=== PATIENT | female | born 1980 | race African-American/Black ===

== ENCOUNTER 2020-07-23 16:20 | Outpatient (REF) | payer BC, SELFPAY ==
[2020-07-23 17:19] LABS: Alanine Aminotransferase 16 U/L (0-31); Albumin Level 4.4 g/dL (3.5-5.0); Alkaline Phosphatase 81 U/L (39-117); Aspartate Amino Transferase 21 U/L (5-31); Bilirubin Direct 0.2 mg/dL (0.0-0.5); Bilirubin Total 0.6 mg/dL (0.0-1.0); Total Protein 7.2 g/dL (6.5-8.0); Triglycerides 150 mg/dL
[2020-07-23 17:39] LABS: HCG Quantitative < 2 mIU/mL
== END 2020-07-23 16:21 | disposition home or self-care (01) ==
LOC: HO.LAB 16:20
PROVIDERS: PCP Nurse Practitioner Family; Visit Provider Physician Assistant
DX: L70.0 Acne vulgaris (principal); Z79.899 Other long term (current) drug therapy
CPT/HCPCS: 80076; 84478; 84702

== ENCOUNTER 2020-09-03 16:44 | Outpatient (REF) | payer BC, SELFPAY ==
[2020-09-03 18:09] LABS: Alanine Aminotransferase 18 U/L (0-31); Albumin Level 4.5 g/dL (3.5-5.0); Alkaline Phosphatase 88 U/L (39-117); Aspartate Amino Transferase 19 U/L (5-31); Bilirubin Direct 0.2 mg/dL (0.0-0.5); Bilirubin Total 0.3 mg/dL (0.0-1.0); Total Protein 7.3 g/dL (6.5-8.0); Triglycerides 165 mg/dL
[2020-09-03 18:15] LABS: HCG Quantitative < 2 mIU/mL
== END 2020-09-03 16:45 | disposition home or self-care (01) ==
LOC: HO.LAB 16:44
PROVIDERS: PCP Nurse Practitioner Family; Visit Provider Dermatology
DX: L70.0 Acne vulgaris (principal); Z79.899 Other long term (current) drug therapy
CPT/HCPCS: 80076; 84478; 84702

== ENCOUNTER 2020-10-01 17:35 | Outpatient (REF) | payer BC, SELFPAY ==
[2020-10-01 18:56] LABS: Alanine Aminotransferase 20 U/L (0-31); Albumin Level 4.3 g/dL (3.5-5.0); Alkaline Phosphatase 82 U/L (39-117); Aspartate Amino Transferase 19 U/L (5-31); Bilirubin Direct 0.2 mg/dL (0.0-0.5); Bilirubin Total 0.3 mg/dL (0.0-1.0); Total Protein 7.1 g/dL (6.5-8.0); Triglycerides 94 mg/dL
[2020-10-01 19:02] LABS: HCG Quantitative < 2 mIU/mL
== END 2020-10-01 17:36 | disposition home or self-care (01) ==
LOC: HO.LAB 17:35
PROVIDERS: PCP Nurse Practitioner Family; Visit Provider Physician Assistant
DX: L70.0 Acne vulgaris (principal); Z79.899 Other long term (current) drug therapy
CPT/HCPCS: 36415; 80076; 84478; 84702

== ENCOUNTER 2020-11-19 14:54 | Outpatient (REF) | payer BC, SELFPAY ==
[2020-11-21 14:52] LABS: C. trachomatis RNA TMA NOT DETECTED (NOT DETECTED); N. gonorrhoeae RNA TMA NOT DETECTED (NOT DETECTED)
[2020-11-22 13:52] LABS: HPV 16 RNA NOT DETECTED (NOT DETECTED); HPV mRNA E6/E7 rflx Detected (Not Detected)
== END 2020-11-19 14:55 | disposition home or self-care (01) ==
LOC: HO.LAB 14:54
PROVIDERS: PCP Nurse Practitioner Family; Visit Provider Advanced Practice Midwife
DX: Z01.419 Encounter for gynecological examination (general) (routine) without abnormal findings (principal); R10.2 Pelvic and perineal pain; B37.3 Candidiasis of vulva and vagina; Z11.51 Encounter for screening for human papillomavirus (HPV); Z11.8 Encounter for screening for other infectious and parasitic diseases; Z11.3 Encounter for screening for infections with a predominantly sexual mode of transmission; Z88.2 Allergy status to sulfonamides; Z88.8 Allergy status to other drugs, medicaments and biological substances; Z91.030 Bee allergy status; Z91.040 Latex allergy status; Z12.31 Encounter for screening mammogram for malignant neoplasm of breast
CPT/HCPCS: 36415; 87491; 87591; 87624; 87625; 88141; 88142

== ENCOUNTER 2020-11-20 14:48 | Outpatient (REF) | payer BC, SELFPAY ==
--- NOTE | ~2020-11-20 | US_ITS ---
EXAMINATION: US PELVIS ULTRASOUND CLINICAL INFORMATION: R10.2 - Pelvic and perineal pain. Patient notes left lower quadrant pain. History endometriosis and spotting on IUD. Prior appendectomy. COMPARISON: None TECHNIQUE: Ultrasound of the pelvis is performed using both transabdominal and transvaginal transducers along with Doppler. Transvaginal imaging is performed due to inadequate visualization transabdominally. FINDINGS: Uterus: The uterus is anteverted and measures 10.1 x 4.8 x 6.1 cm. Volume 154 mL. There is an IUD present in expected position. The double wall endometrial thickness is approximately 7 mm. There is trace fluid in the endocervical canal. The uterus is smooth in contour and has normal myometrial echogenicity. There is a small right anterior intramural fibroid measuring 0.9 x 0.7 x 0.9 cm. Adnexa: Both ovaries are visualized. There is normal color flow to the adnexa. There is no ovarian torsion. There is no pelvic ascites or fluid collection. Right ovary measures 4.2 x 2.0 x 2.0 cm. Volume 9.0 mL. Left ovary measures 3.1 x 1.8 x 2.5 cm. Volume 7.3 mL. US/US pelvic complete IMPRESSION: 1. Uterus: IUD in normal position. Trace fluid in the cervical canal. Small intramural fibroid 0.9 cm. 2. Adnexa: No adnexal mass or pelvic ascites.
--- NOTE | ~2020-11-20 | US_ITS ---
EXAMINATION: US PELVIS ULTRASOUND CLINICAL INFORMATION: R10.2 - Pelvic and perineal pain. Patient notes left lower quadrant pain. History endometriosis and spotting on IUD. Prior appendectomy. COMPARISON: None TECHNIQUE: Ultrasound of the pelvis is performed using both transabdominal and transvaginal transducers along with Doppler. Transvaginal imaging is performed due to inadequate visualization transabdominally. FINDINGS: Uterus: The uterus is anteverted and measures 10.1 x 4.8 x 6.1 cm. Volume 154 mL. There is an IUD present in expected position. The double wall endometrial thickness is approximately 7 mm. There is trace fluid in the endocervical canal. The uterus is smooth in contour and has normal myometrial echogenicity. There is a small right anterior intramural fibroid measuring 0.9 x 0.7 x 0.9 cm. Adnexa: Both ovaries are visualized. There is normal color flow to the adnexa. There is no ovarian torsion. There is no pelvic ascites or fluid collection. Right ovary measures 4.2 x 2.0 x 2.0 cm. Volume 9.0 mL. Left ovary measures 3.1 x 1.8 x 2.5 cm. Volume 7.3 mL. US/US transvaginal IMPRESSION: 1. Uterus: IUD in normal position. Trace fluid in the cervical canal. Small intramural fibroid 0.9 cm. 2. Adnexa: No adnexal mass or pelvic ascites.
== END 2020-11-20 14:49 | disposition home or self-care (01) ==
LOC: HO.HMGCX 14:48
PROVIDERS: PCP Nurse Practitioner Family; Visit Provider Advanced Practice Midwife
DX: R10.2 Pelvic and perineal pain (principal)
CPT/HCPCS: 76830; 76856

== ENCOUNTER → 2020-11-22 09:50 | Outpatient (BNVA) | payer BC, SELFPAY | PROVIDERS: PCP Nurse Practitioner Family; Visit Provider Advanced Practice Midwife ==

== ENCOUNTER 2020-12-05 17:01 | Outpatient (REF) | payer BC, SELFPAY ==
[2020-12-05 17:51] LABS: UPreg QC Valid YES; Urine Pregnancy NEGATIVE (NEGATIVE)
== END 2020-12-05 17:02 | disposition home or self-care (01) ==
LOC: HO.LABR 17:01
PROVIDERS: PCP Nurse Practitioner Family; Visit Provider Physician Assistant
DX: L70.0 Acne vulgaris (principal); Z79.899 Other long term (current) drug therapy
CPT/HCPCS: 81025

== ENCOUNTER 2021-01-01 15:42 | Outpatient (REF) | payer BC, SELFPAY ==
[2021-01-02 11:38] LABS: BV Int Neg Control Negative (Negative); BV Int Pos Control Positive (Positive)
== END 2021-01-01 15:43 | disposition home or self-care (01) ==
LOC: HO.LAB 15:42
PROVIDERS: PCP Nurse Practitioner Family; Visit Provider Obstetrics & Gynecology
DX: N80.9 Endometriosis, unspecified (principal); R87.612 Low grade squamous intraepithelial lesion on cytologic smear of cervix (LGSIL); N76.0 Acute vaginitis; R10.2 Pelvic and perineal pain
CPT/HCPCS: 81003; 81025; 87480; 87510; 87660

== ENCOUNTER 2021-01-16 15:15 | Outpatient (REF) | payer BC, SELFPAY | END 2021-01-16 15:16 | disposition home or self-care (01) | LOC: HO.LAB 15:15 | PROVIDERS: PCP Nurse Practitioner Family; Visit Provider Obstetrics & Gynecology | DX: R87.612 Low grade squamous intraepithelial lesion on cytologic smear of cervix (LGSIL) (principal); N80.9 Endometriosis, unspecified; Z88.2 Allergy status to sulfonamides; Z88.8 Allergy status to other drugs, medicaments and biological substances; Z91.030 Bee allergy status; Z91.040 Latex allergy status; Z30.432 Encounter for removal of intrauterine contraceptive device | CPT/HCPCS: 57454; 58301; 88305 ==

== ENCOUNTER 2021-01-30 12:19 | Outpatient (REF) | payer BC, SELFPAY ==
[2021-01-30 19:37] LABS: Urine Pregnancy NEGATIVE (NEGATIVE)
[2021-01-30 19:38] LABS: UPreg QC Valid YES
[2021-01-30 19:59] LABS: HCG Quantitative < 2 mIU/mL
== END 2021-01-30 12:20 | disposition home or self-care (01) ==
LOC: HO.LAB 12:19
PROVIDERS: Absent Provider Physician Assistant; PCP Nurse Practitioner Family; Visit Provider Obstetrics & Gynecology
DX: L70.0 Acne vulgaris (principal); N80.9 Endometriosis, unspecified; Z79.899 Other long term (current) drug therapy
CPT/HCPCS: 36415; 81025; 84702

== ENCOUNTER 2021-03-08 08:31 | Outpatient (REF) | payer BC, SELFPAY ==
--- NOTE | ~2021-03-08 | MM_ITS ---
EXAMINATION: MM SCREENING DIGITAL BREAST TOMOSYNTHESIS, BILATERAL CLINICAL INFORMATION: Screening. Asymptomatic. Age 41. No prior breast imaging. No known family history breast cancer. The lifetime risk of breast cancer based on the Tyrer-Cuzick Model is 7%. COMPARISON: None (current study represents initial baseline exam). TECHNIQUE: Digital breast tomosynthesis is performed in both the craniocaudal and mediolateral oblique views along with computer-aided detection (CAD). Synthesized 2D images are generated from the tomosynthesis. FINDINGS: There are scattered areas of fibroglandular density (ACR BI-RADS breast composition Category b). There are no significant masses, abnormal calcifications, or other abnormalities. There are scattered benign bilateral punctate round calcifications, most are dermal. The axilla and skin contours are unremarkable. MM/MM tomosynthesis screening BI IMPRESSION: No mammographic evidence of malignancy. ASSESSMENT: BI-RADS 2: Benign RECOMMENDATION: Routine annual mammography screening. This patient's information was entered into a reminder system with a target due date for their next mammogram.
== END 2021-03-08 08:32 | disposition home or self-care (01) ==
LOC: HO.MAMMO 08:31
PROVIDERS: Visit Provider Advanced Practice Midwife
DX: Z12.31 Encounter for screening mammogram for malignant neoplasm of breast (principal)
CPT/HCPCS: 77063; 77067

== ENCOUNTER 2021-03-25 16:39 | Outpatient (REF) | payer BC, SELFPAY ==
[2021-03-25 18:26] LABS: UPreg QC Valid YES; Urine Pregnancy NEGATIVE (NEGATIVE)
== END 2021-03-25 16:40 | disposition home or self-care (01) ==
LOC: HO.LAB 16:39
PROVIDERS: PCP Nurse Practitioner Family; Visit Provider Physician Assistant
DX: Z79.899 Other long term (current) drug therapy (principal)
CPT/HCPCS: 81025

== ENCOUNTER 2021-05-01 14:58 | Outpatient (REF) | payer BC, SELFPAY ==
[2021-05-01 16:11] LABS: HCG Quantitative < 2 mIU/mL
== END 2021-05-01 14:59 | disposition home or self-care (01) ==
LOC: HO.LAB 14:58
PROVIDERS: PCP Nurse Practitioner Family; Visit Provider Physician Assistant
DX: Z79.899 Other long term (current) drug therapy (principal)
CPT/HCPCS: 36415; 84702

== ENCOUNTER → 2021-09-10 09:31 | Outpatient (BNVA) | payer BC, SELFPAY | PROVIDERS: PCP Nurse Practitioner Family; Visit Provider Obstetrics & Gynecology ==

== ENCOUNTER 2022-12-15 09:57 | Outpatient (REF) | payer BC, SELFPAY ==
--- NOTE | ~2022-12-15 | MM_ITS ---
EXAMINATION: MM SCREENING DIGITAL BREAST TOMOSYNTHESIS, BILATERAL CLINICAL INFORMATION: Screening. Asymptomatic. The lifetime risk of breast cancer based on the Tyrer-Cuzick Model is 7%. COMPARISON: Mammography: 03/08/2021 (baseline) TECHNIQUE: Digital breast tomosynthesis is performed in both the craniocaudal and mediolateral oblique views along with computer-aided detection (CAD). Synthesized 2D images are generated from the tomosynthesis. FINDINGS: There are scattered areas of fibroglandular density (ACR BI-RADS breast composition Category b). There are no significant masses, abnormal calcifications, or other abnormalities. Parenchymal pattern is similar to prior baseline exam. No architectural abnormality. There are scattered random calcifications again noted, most dermal. The axilla are unremarkable. MM/MM tomosynthesis screening BI IMPRESSION: No mammographic evidence of malignancy. ASSESSMENT: BI-RADS 2: Benign RECOMMENDATION: Routine annual mammography screening. This patient's information was entered into a reminder system with a target due date for their next mammogram.
== END 2022-12-15 09:58 | disposition home or self-care (01) ==
LOC: HO.MAMMO 09:57
PROVIDERS: PCP Nurse Practitioner Family; Visit Provider Nurse Practitioner Family
DX: Z12.31 Encounter for screening mammogram for malignant neoplasm of breast (principal)
CPT/HCPCS: 77063; 77067

== ENCOUNTER 2023-05-18 10:27 | Outpatient (AMB) | payer BC, SELFPAY ==
--- OUTSIDE RECORDS SUMMARY | 2023-05-18 10:29 | XMS_ITS | Continuity of Care Document ---
Author Name Unknown Organization [facility] Address [address] [place] [id number]- Care Team Providers Care Site Safety Manager Name Role Phone Gracy PÉREZ, Wyatt Feng Primary Care Physician Encounter [facility] [place] Date(s): 06/28/22 - 06/28/[address] [address]- Encounter Diagnosis Allergic reaction to bee sting(Final) - 06/28/22 Discharge Disposition: A-D/C Home Attending Physician: Fredrick Barrios DO Admitting Physician: Fredrick Barrios DO Referring Physician: Not on Staff, Referring MD Allergies, Adverse Reactions, Alerts Substance Reaction Severity Status Bee Stings Active Medications EpiPen 2-Yoshi 0.3 mg injectable kit = 0.3 mg, Intramuscular, Once, # 1 each, 0 Refills, Soft Stop, 06/28/22 22:06:00 EDT, [facility]/pharmacy #[id number], Partial fill upon patient request if the prescription is for a schedule II opioid drug. Start Date: 06/28/22 Status: Ordered Vital Signs Most recent to oldest [Reference Range]: 1 2 3 Oxygen Saturation [94-100 %] 98 % (06/28/22 10:00 PM) 98 % (06/28/22 9:51 PM) 99 % (06/28/22 9:00 PM) Pulse Rate [55-90 bpm] 87 bpm (06/28/22 10:00 PM) 98 bpm *H* (06/28/22 9:51 PM) 101 bpm *H* (06/28/22 9:00 PM) Blood Pressure [90-138/55-84 mm Hg] 148/97mm Hg *H* (06/28/22 10:00 PM) 143/93mm Hg *H* (06/28/22 9:00 PM) 133/82mm Hg (06/28/22 7:58 PM) Respiratory Rate [16-30 br/min] 25 br/min (06/28/22 10:00 PM) 25 br/min (06/28/22 9:51 PM) 25 br/min (06/28/22 9:00 PM) Temperature [96.8-100.4 DegF] 98.2 DegF (06/28/22 7:58 PM) Mode of Delivery (Oxygen) Room air (06/28/22 9:51 PM) Room air (06/28/22 7:58 PM) Temperature Route Oral (06/28/22 7:58 PM) Patient Care team information Personnel Name: Wyatt Dubose NP Address: Address: [address] [place] [id number]
--- NOTE | 2023-05-18 10:31 | MHC.OFFVIS ---
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: No Information Interpreted: non-clinical & clinical Ladle Car Operator: Ladle Car Operator Present (Mary Beth) Allergies latex Allergy (Unknown, Verified 05/18/23 10:35) unknown Sulfa (Sulfonamide Antibiotics) Allergy (Unknown, Verified 05/18/23 10:35) unknown sulfamethoxazole [From Bactrim] Allergy (Unknown, Verified 05/18/23 10:35) unknown trimethoprim [From Bactrim] Allergy (Unknown, Verified 05/18/23 10:35) unknown bee stings Allergy (Unknown, Uncoded 05/18/23 10:35) unknown Is last menstrual period known: No Post menopausal: No HPI HPI Comments History of Present Illness Details Presenting for annual exam. No complaints. Last Pap/HPV was WANDA 1/HPV positive, colpo/biopsy/ECC were negative Last Mammogram was BI-RADS 2 in 12/18 No previous screening colonoscopy [facility] Medical History (Updated 05/18/23 @ 10:58 by Bereket Heaton MD) Acne cosmetica Endometriosis LGSIL (low grade squamous intraepithelial dysplasia) On Accutane therapy Surgical History History of appendectomy History of tubal ligation S/P laparoscopic surgery Family History Father Diabetes mellitus Mother No problems noted. Sister No problems noted. Maternal Grandmother Diabetes mellitus Lung cancer Maternal Grandfather Myocardial infarction Paternal Grandmother Diabetes mellitus Stroke Paternal Grandfather Myocardial infarction Son No problems noted. Daughter No problems noted. Social History Alcohol intake: current Alcohol intake frequency: a few times a month Female Reproductive History Menstrual Age of Menarche: 11 control method: permanent sterilization Total pregnancies: 2 Full term: 2 Number of Living Children: 2 Date of last pap smear: 11/20/20 (+HPV) History of abnormal pap smear: Yes Date of Mammogram: 12/15/22 Review of Systems Const All systems reviewed & are unremarkable except as noted in HPI and below Card Reports as per HPI Resp Reports as per HPI GI Reports as per HPI and Reports no additional complaints Reports as per HPI Physical Exam Vital Signs: Last Vital Signs BP 130/86 05/18/23 10:32 BMI result Body Mass Index 36.1 Const General: cooperative, healthy appearing and comfortable Chest Chest palpation & inspection: normal inspection of the chest and normal palpation of entire chest wall Breast/axilla inspection: normal inspection of the breasts and normal inspection of the axillae Breast/axilla palpation: normal palpation of the breasts, normal palpation of the axillae and no axillary lymphadenopathy Resp Effort & Inspection: normal respiratory effort Auscultation: clear to auscultation bilaterally Percussion: percussion normal Cardio Palpation: normal PMI Rate: regular rate Rhythm: regular rhythm Heart sounds: no murmurs and no rubs Peripheral pulses: Peripheral pulses 2+ throughout GI Inspection: Yes normal to inspection Palpation (GI): Soft to palpation, nontender, no guarding, not rigid and No hepatosplenomegaly present Percussion: Yes normal to percussion Auscultation: normal bowel sounds Rectal Exam - Female: deferred General: Yes bladder normal to palpation External Female Exam: No lesion Speculum Exam - Vagina: normal appearance of the vagina, normal palpation, normal vaginal discharge and not erythematous Speculum Exam - Cervix: normal appearance of the cervix and normal palpation Bimanual exam- vagina & uterus: normal bimanual exam, normal palpation, uterine size normal, bladder normal to palpation, consistency normal and normal palpation Bimanual Exam- Adnexa, other: normal adnexae, no masses and no tenderness Assessment & Plan Assessment & Plan (1) Well woman exam: Code(s): Z01.419 - Encounter for gynecological examination (general) (routine) without abnormal findings Plan: Cotesting done. Instructions given the patient to schedule her next screening Mammogram in 12/19. Counseled the patient about the recommended dietary allowance of 1000 mg of Calcium & 600 IU of vitamin D. The patient was instructed to perform monthly self-breast exams and to schedule an annual exam in a year; will refer the patient GI for screening colonoscopy. All questions answered and the patient verbalized understanding. Instructed the patient to schedule annual exam in a year Orders: Referrals Gastroenterology Referral Z12.11 - Encounter for screening for malignant neoplasm of colon Coding Level of Care Code Est Pt Prev Care 40-64y([address]393) Diagnoses Well woman exam Z01.419
[2023-05-18 10:32] VITALS: BP 130/86; BMI 36.1
== END 2023-05-18 11:07 | disposition home or self-care (01) ==
LOC: HO.HWS 10:27
PROVIDERS: PCP Nurse Practitioner Family; Visit Provider Obstetrics & Gynecology
DX: Z01.419 Encounter for gynecological examination (general) (routine) without abnormal findings (principal)
CPT/HCPCS: 99396

== ENCOUNTER 2023-05-18 10:27 | Outpatient (REF) | payer BC, SELFPAY ==
[2023-05-21 20:49] LABS: HPV mRNA E6/E7 rflx Not Detected (Not Detected)
== END 2023-05-18 10:28 | disposition home or self-care (01) ==
LOC: HO.LNP 10:27
PROVIDERS: PCP Nurse Practitioner Family; Visit Provider Obstetrics & Gynecology
DX: Z01.419 Encounter for gynecological examination (general) (routine) without abnormal findings (principal)
CPT/HCPCS: 87624; 88142

== ENCOUNTER 2023-11-24 10:04 | Outpatient (REF) | payer BC, SELFPAY ==
[2023-11-24 10:39] LABS: Appearance Urine Clear; Color Urine Yellow; Glucose Urine UA Negative (Negative); Leukocyte Esterase Urine Trace (Negative); Nitrite Urine Negative (Negative); PH 5.5 (5.0-9.0); Specific Gravity - Urine 1.015 (1.005-1.025); UMIC TRIGGER UACC YES; Urine Blood Trace (Negative); Urine Ketones Negative (Negative); Urine Protein Negative (Neg-Trace)
[2023-11-24 10:47] LABS: Bacteria Urine 1+ (None Seen); Hyaline Casts Urine 0-2 /LPF (0-2); UACC Culture Trigger YES
== END 2023-11-24 10:05 | disposition home or self-care (01) ==
LOC: HO.LAB 10:04
PROVIDERS: PCP Nurse Practitioner Family; Visit Provider Obstetrics & Gynecology
DX: R30.0 Dysuria (principal)
CPT/HCPCS: 81001; 87086; 87088; 87186

== ENCOUNTER 2024-03-25 21:38 | Emergency (ER) | payer BC, SELFPAY ==
[2024-03-25 21:40] VITALS: BP 125/84; PULSE 90; RESP 18; TEMP 36.9; O2SAT 97; BMI 36.7
--- NOTE | 2024-03-25 22:02 | ED.ALLEREA ---
HPI - Allergic Reaction General Chief complaint: Allergic Reaction Stated complaint: Allergic reaction Time Seen by Provider: 03/25/24 21:58 Source: patient Mode of arrival: ambulatory Limitations: no limitations History of Present Illness ED Provider: Dr. Shantell Montes HPI narrative: patient comes to the emergency room complaining of an allergic reaction to a bee sting. 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 Patient states that she is known to be allergic and therefore immediately injected herself with an EpiPen. Patient states that she was doing well initially. However, within couple of hours patient started having hives head to toe, very itchy. Patient denies chest pain or shortness of breath, no difficulty breathing. Complaining of tachycardia that started after injecting the EpiPen Related Data Home Medications ?Medication ?Instructions ?Recorded ?Confirmed phentermine 37.5 mg capsule 37.5 mg PO 05/18/23 Previous Rx's ?Medication ?Instructions ?Recorded levonorgestrel 0.15 mg-ethinyl 1 tab PO DAILY #91 tabs 06/04/23 estradiol 30 mcg tablets,3 mos pack(91) nitrofurantoin 100 mg PO BID 5 days #10 caps 11/25/23 monohydrate/macrocrystals 100 mg capsule (Macrobid) epinephrine 0.3 mg/0.3 mL 0.3 mg (0.3 mL) IM Q4H PRN 03/25/24 injection, auto-injector (EpiPen) anaphylaxis #2 ea Allergies Allergy/AdvReac Type Severity Reaction Status Date / Time latex Allergy Unknown unknown Verified 03/25/24 21:42 Sulfa (Sulfonamide Allergy Unknown unknown Verified 03/25/24 21:42 Antibiotics) sulfamethoxazole Allergy Unknown unknown Verified 03/25/24 21:42 [From Bactrim] trimethoprim [From Bactrim] Allergy Unknown unknown Verified 03/25/24 21:42 bee stings Allergy Unknown unknown Uncoded 05/18/23 10:35 Review of Systems Review of Systems: Constitutional : No Weight loss, No Fever, No Chills, No Night Sweats, No Fatigue, No Malaise ENT/Mouth : No Hearing loss, No Ear Pain, No Nasal Congestion, No Sinus Pain, No Hoarseness, No sore throat, No Rhinorrhea, No Swallowing Difficulty Eyes: No Eye Pain, No Swelling, No Redness, No Foreign Body, No Discharge, No Vision Changes Cardiovascular : No Chest Pain, No SOB, No Dyspnea on Exertion, No Orthopnea, No Edema, complaining of Palpitations Respiratory : No Cough, No Sputum, No Wheezing, No Smoke Exposure, No Dyspnea Gastrointestinal : No Nausea, No Vomiting, No Diarrhea, No Constipation, No abdominal Pain, No Hematochezia, No Melena Genitourinary : no irregular bleeding, No Dysuria, No Urinary Frequency, No Hematuria, No Urinary Incontinence, No Urgency, No Flank Pain, No Urinary Flow Changes, No Hesitancy Musculoskeletal : No joint pain, No Myalgias, No Joint Swelling Skin : complaining of hives head to toe Neuro : No Weakness, No Numbness, No Paresthesias, No Loss of Consciousness, No Dizziness, No Headache Psych : No Anxiety/Panic, No Depression, No SI/HI/AH/VH, No Social Issues, Heme/Lymph: No Bruising, No Bleeding,No Lymphadenopathy Endocrine : No Polyuria, No Polydipsia, No Temperature Intolerance PMFSH Past Medical History Medical History LGSIL (low grade squamous intraepithelial dysplasia) On Accutane therapy Acne cosmetica Endometriosis Surgical History S/P laparoscopic surgery History of appendectomy History of tubal ligation Family History Family History Father Diabetes mellitus Mother No problems noted. Sister No problems noted. Maternal Grandmother Diabetes mellitus Lung cancer Maternal Grandfather Myocardial infarction Paternal Grandmother Diabetes mellitus Stroke Paternal Grandfather Myocardial infarction Son No problems noted. Daughter No problems noted. Social History Social History Alcohol intake: current Alcohol intake frequency: holidays/special occasions only Smoked in Last 30 Days: No Use of substances other than those prescribed or required for medical reasons: No Advance Directives: No Advance Directives Information Provided: No Do you have a plan to hurt others: No Plan Patient : No Physical Exam ED Vital Signs: Vital Signs - 24 hr 03/25/24 21:40 Temperature 98.5 F Pulse Rate 90 Respiratory Rate 18 Blood Pressure 125/84 Pulse Oximetry 97 Oxygen Delivery Method Room Air BMI result Body Mass Index 36.7 Const Other: Appearance: Alert. Oriented X3. No acute distress. Eyes: Pupils equal, round and reactive to light. ENT: Pharynx normal. Neck: Normal inspection. Neck supple. No lymph nodes noted. No crepitus CVS: Normal heart rate and rhythm. Pulses normal. Normal S1 and S2 Respiratory: No respiratory distress. Breath sounds normal. No Wheezing. No rales Abdomen: Soft and nontender. No rigidity. No distention. Skin: hives around the neck, chest, arms legs abdomen and back Extremities: No lower extremity edema. No Lacerations. No Rash Neuro: Oriented X 3. No motor deficit. No sensory deficit. Moving all extremities. No slurred speech. CN 2 through 12 grossly intact Psych: calm, cooperative, normal affect Course Course Course Narrative: - at this time, patient has hives. No signs of angioedema. - Discussed with the patient that the tachycardia is secondary to a side effect of the EpiPen. - Vitals stable. - Patient receiving IV fluids, diphenhydramine, famotidine and Solu-Medrol IV Medications Administered Discontinued Medications Generic Name Dose Route Start Last Admin Trade Name Freq PRN Reason Stop Dose Admin Diphenhydramine HCl 50 mg 03/25/24 22:01 03/25/24 22:11 Diphenhydramine Hcl 50 Mg/Ml Vial IVPUSH 03/25/24 22:02 50 mg ONCE ONE Administration Famotidine 20 mg 03/25/24 22:01 03/25/24 22:11 Famotidine/Pf 20 Mg/2 Ml Vial IVPUSH 03/25/24 22:02 20 mg ONCE ONE Administration Sodium Chloride 1,000 mls @ 999 mls/hr 03/25/24 22:01 03/25/24 22:11 Ns IVCONT 03/25/24 23:01 999 mls/hr .Q1H1M ONE Administration Methylprednisolone Sodium Succinate 125 mg 03/25/24 22:01 03/25/24 22:11 Methylprednisolone Sod Succ 125 Mg/2 Ml Vial IVPUSH 03/25/24 22:02 125 mg ONCE ONE Administration Ondansetron HCl 4 mg 03/25/24 22:06 03/25/24 22:11 Ondansetron Hcl 4 Mg/2 Ml Vial IVPUSH 03/25/24 22:07 4 mg ONCE ONE Administration Medical Decision Making Medical Decision Making [facility] Narrative: after the IV treatment, patient feeling much better, hives completely resolved - vitals remained stable - on physical exam prior to discharge patient's oxygen saturation 97% on room air, no wheezing, no oropharyngeal edema Differential Diagnosis Differential Diagnoses: The differential diagnosis associated with the presentation includes ( allergic reaction, anaphylaxis) Critical Care Time Critical Care Time Critical Care Time: Yes Total Critical Care Time: 60 Attestation: I have personally provided critical care time. Time includes review of lab data, radiology results, discussion with consultants, and monitoring for potential decompensation. Intervention performed as documented. Discharge Plan Discharge Clinical Impression: Bee sting allergy Patient Disposition: Home, Self-Care Instructions: Allergies (ED) Additional Instructions: Please follow-up with your primary care physician tomorrow. If you have any worsening or new symptoms, please return to the emergency room or call 911 Prescriptions: New epinephrine [EpiPen] 0.3 mg/0.3 mL auto-injector 0.3 mg IM Q4H PRN (Reason: anaphylaxis) Qty: 2 0RF No Action levonorgestrel-ethinyl estrad 0.15 mg-30 mcg (91) tablets,dose pack,3 month 1 tab PO DAILY Qty: 91 3RF nitrofurantoin monohyd/m-cryst [Macrobid] 100 mg capsule 100 mg PO BID 5 Days Qty: 10 0RF phentermine 37.5 mg capsule 37.5 mg PO Print Language: Burkinan
[2024-03-25] MEDS: diphenhydrAMINE HCL 50 MG/ML VIAL IVPUSH (22:11)
[2024-03-25] MEDS: Famotidine/PF 20 MG/2 ML VIAL IVPUSH (22:11)
[2024-03-25] MEDS: methylPREDNISolone Sod Succ 125 MG/2 ML VIAL IVPUSH (22:11)
[2024-03-25] MEDS: ondansetron HCL 4 MG/2 ML VIAL IVPUSH (22:11)
[2024-03-25] MEDS: 0.9 % Sodium Chloride 1,000 ML 999 ML IVCONT (22:11)
[2024-03-25 23:36] VITALS: BP 125/84; PULSE 90; RESP 18; TEMP 36.9; O2SAT 97
== END 2024-03-25 23:37 | disposition home or self-care (01) ==
PROVIDERS: Emergency Provider Emergency Medicine; PCP Nurse Practitioner Family
DX: T63.441A Toxic effect of venom of bees, accidental (unintentional), initial encounter (principal); L50.9 Urticaria, unspecified; Y92.007 Garden or yard of unspecified non-institutional (private) residence as the place of occurrence of the external cause; Z79.899 Other long term (current) drug therapy
CPT/HCPCS: 96361; 96374; 96375; 99284; J1200; J2405; J2919

== ENCOUNTER → 2024-05-26 13:15 | Outpatient (RCR) | payer BC, SELFPAY ==
[2021-01-08 14:57] VITALS: BP 128/75; PULSE 91; TEMP 36.4; O2SAT 95; BMI 38.5
--- NOTE | 2021-01-08 15:49 | PM.HEMONCCN ---
Subjective - Subjective Chief complaint: Consult for: Family history of blood clots. Patient: new to practice Consult date: 01/08/21 Requesting Physician: Sudarshan. Primary Care Provider: Wyatt Dubose [facility] Medical Summary: DIAGNOSIS: Mother with history of DVT at age of 18. She was on control. Grandma with blood clot in her 20 to 30ies. HPI - Consult Narrative Reason for consult: Consult for family history of DVT. Narrative: Brisa Messina is a pleasant 40 year old lady, who is in excellent health. She tells me that she has history of endometriosis. She had an IUD in place for the last 3 years. Lately she has had more premenstrual pain. Her period is not heavy however the pelvic pain tends to be rather excruciating. She had it lasting 2 weeks in October. Then again in November. Now she started her period beginning of December. She is spotting however the pain is rather intense. She has to go to have the IUD removed and undergo scraping. Then to consider control pills, for the endometriosis. She has been referred since she has a family history of DVTs. Her mom was 18 when she was started on control. She had a DVT. She was admitted and was on heparin then bridged over to warfarin. She thinks she had 3 episodes. They resolve once she was off the oral contraceptive. Her maternal grandma had developed a DVT in her 30s in her leg. There is no other relative with that history. 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 She is . She has 2 children 22 and 20-year-old. Her 20-year-old daughter is in the [employer] in [place]. Recently she started indulging in healthy habits. This was actually triggered by a COVID infection in last October. She got really ill with it. After she got better, she started it taking in healthy nutritious diet. She does not eat meat. She has started exercising regularly. She has been able to lose 30 lb in 1 year. She is working 3 jobs in addition. ROS: She has excellent energy level. No fever nor chills. She enjoys a good appetite. She lost weight. She denies any chest pain or trouble breathing. No lower extremity pain or edema. Denies abdominal pain nausea vomiting heartburn indigestion. Her bowels are working without any gross blood in the stools. No urinary symptoms. Denies joint pains nor muscle aches. Denies focal weakness. Denies depression. Review of Systems - Constitutional Reports system reviewed and no additional complaints, except as documented - Eyes Reports system reviewed and no additional complaints, except as documented - ENT Reports system reviewed and no additional complaints, except as documented - Cardiovascular Reports system reviewed and no additional complaints, except as documented - Respiratory Reports no additional respiratory complaints - Gastrointestinal Reports system reviewed and no additional complaints, except as documented - Genitourinary Reports no additional female genitourinary complaints - Musculoskeletal Reports system reviewed and no additional complaints, except as documented - Integumentary/Breasts Skin/Breast: Reports no additional skin complaints - Neurologic Reports system reviewed and no additional complaints, except as documented - Psychiatric Reports system reviewed and no additional complaints, except as documented - Endocrine Reports no additional endocrine complaints - Hematologic/Lymphatic Reports system reviewed and no additional complaints, except as documented - Allergic/Immunologic Reports system reviewed and no additional complaints, except as documented PMF Medical History: Medical History (Last Reviewed 01/08/21 @ 15:00 by Gabi Pastrana) Acne cosmetica Endometriosis On Accutane therapy Functional capacity: independent ambulation Patient : No Family History: Family History (Last Reviewed 01/08/21 @ 15:00 by Gabi Pastrana) Father Diabetes mellitus Mother No problems noted. Sister No problems noted. Maternal Grandmother Diabetes mellitus Lung cancer Maternal Grandfather Myocardial infarction Paternal Grandmother Diabetes mellitus Stroke Paternal Grandfather Myocardial infarction Son No problems noted. Daughter No problems noted. Surgical History: Surgical History (Last Reviewed 01/08/21 @ 15:00 by Gabi Pastrana) History of appendectomy History of tubal ligation S/P laparoscopic surgery Social History: Social History (Last Updated 01/08/21 @ 15:01 by Gabi Pastrana) Alcohol History: Alcohol intake: current Alcohol History Details: Alcohol intake frequency: a few times a month Tobacco History: Smoking Status: Never smoker Substance Use History: Use of substances other than those prescribed or required for medical reasons: No Nutrition Assessment: Patient : No Smoking status: Never smoker Home Medications and Allergies Home Medications Medication Instructions Recorded Confirmed Type isotretinoin [Claravis] cap PO 01/08/21 01/08/21 History Allergies Allergy/AdvReac Type Severity Reaction Status Date / Time latex Allergy Unknown unknown Verified 01/01/21 15:54 Sulfa (Sulfonamide Allergy Unknown unknown Verified 01/01/21 15:54 Antibiotics) sulfamethoxazole Allergy Unknown unknown Verified 01/01/21 15:54 [From Bactrim] trimethoprim [From Bactrim] Allergy Unknown unknown Verified 01/01/21 15:54 bee stings Allergy Unknown unknown Uncoded 08/29/20 12:05 Physical Exam Vital signs: Vital Signs Temp 97.6 F 01/08/21 14:57 Pulse 91 01/08/21 14:57 BP 128/75 01/08/21 14:57 Pulse Ox 95 01/08/21 14:57 Intake & Output 01/07/21 01/08/21 01/08/21 18:59 06:59 18:59 Other: Weight 89.4 kg [place] Weight in Grams 58991 Weight 89.4 kg - Constitutional Present: no acute distress - Routine HEENT Exam Head: Present: normal inspection ENT: Present: mucous membranes moist - Routine Neck Exam Present: supple - Routine Respiratory Exam Present: CTAB - Routine Cardiovascular Exam Cardiovascular: Present: RRR, S1, S2 - Routine Abdominal Exam Present: soft, nontender - Routine Skin Exam Present: intact - Routine Neurological Exam Present: alert, vision grossly intact - Detailed Neurological Exam: Coma Scale Eye Opening: Spontaneous (4) Verbal Response: Oriented (5) Motor Response: Obeys commands (6) Celestina Coma Scale Total: 15 - Routine Psychiatric Exam Present: normal affect Hem/Onc Consult Result - Labs CBC & Chem 7: 01/08/21 15:47 01/08/21 15:47 Assessment and Plan (1) Family history of thrombosis Status: Acute This is a very pleasant 40-year-old lady without any significant past medical history. Her mom had developed DVT at the age of 18 after she took oral contraceptives. Her grandma had a DVT middle-age. She has had endometriosis. V Belt Skiver if she can get oral contraceptives. The patient herself has not had any problems. She has been on oral contraceptives in the past and has tolerated them well. The DVT in her mom was provoked, and she never had a recurrence after discontinuation of the control. PLAN: As such I feel that she does not really need to undergo extensive hypercoagulable workup. She can wait till after her procedures to decide if she would like to have another IUD placed or if she can be on Provera or low-dose estrogen containing oral contraceptive. Will check baseline labs to make sure she does not have anemia in the setting of her irregular periods. I wish her the best of luck. Thank you, CC: Dr. Heaton.
[2021-01-08 16:13] LABS: MANUAL DIFF FLAG NO
--- NOTE | 2021-01-08 16:21 | MHC.HEMONCMA ---
Pt presents for consult for thrombosis. History reviewed and labs drawn.
[2021-01-08 16:24] LABS: Basophils Absolute Auto 0.1 X10*3/uL (0.0-0.2); Basophils Percent Auto 0.7 % (0-2); Eosinophils Percent Auto 0.5 % (0-4); Hematocrit 38.8 % (37-47); Hemoglobin 12.9 g/dl (12.0-16.0); Imm Gran Abs Auto 0.03 X10*3/uL (0.00-0.03); Imm Gran Pct Auto 0.4 % (0.0-0.4); Lymphocytes Absolute Auto 2.8 X10*3/uL (1.2-4.9); Lymphocytes Percent Auto 34.9 % (20-40); Mean Corpuscular HGB Conc 33.2 g/dl (31.0-35.0); Mean Corpuscular Hemoglobin 30.2 pg (27.0-33.0); Mean Corpuscular Volume 90.9 fL (80-98); Mean Platelet Volume 9.3 fL (9.4-12.3); Monocytes Absolute Auto 0.5 X10*3/uL (0.1-1.2); Monocytes Percent Auto 5.7 % (2-11); Neutrophils Absolute Auto 4.7 X10*3/uL (2.0-8.3); Neutrophils Percent Auto 57.8 % (45-73); Platelet Count 335 X10*3/uL (160-400); Red Blood Count 4.27 X10*6/uL (4.20-5.50); Red Cell Distribution Width 13.5 % (11.0-16.0); White Blood Count 8.1 X10*3/uL (4.8-10.8)
[2021-01-08 16:40] LABS: Alanine Aminotransferase 17 U/L (0-31); Albumin Level 4.4 g/dL (3.5-5.0); Alkaline Phosphatase 84 U/L (39-117); Anion Gap 14 (12-20); Aspartate Amino Transferase 22 U/L (5-31); Bilirubin Total 0.4 mg/dL (0.0-1.0); Blood Urea Nitrogen 11 mg/dL (9-16); Calcium 9.4 mg/dL (8.4-10.2); Carbon Dioxide 25 mmol/L (22-29); Chloride 103 mmol/L (96-108); Creatinine Clr Calc Pharmacy 98.5; Estimated Glomerular Filt Rate > 60; Glucose Random 83 mg/dL (60-115); Potassium 3.9 mmol/L (3.3-5.1); Sodium 138 mmol/L (135-145); Total Protein 7.6 g/dL (6.5-8.0)
[2021-01-08 17:00] LABS: Ferritin 56 ng/mL (10-250)
== END | disposition home or self-care (01) ==
LOC: HO.ONC 01-08 14:53
PROVIDERS: PCP Nurse Practitioner Family; Visit Provider Internal Medicine Medical Oncology
DX: N80.9 Endometriosis, unspecified (principal); Z82.49 Family history of ischemic heart disease and other diseases of the circulatory system
CPT/HCPCS: 36415; 80053; 82728; 85025

== ENCOUNTER 2024-09-08 08:33 | Outpatient (AMB) | payer BC, SELFPAY ==
[2024-09-08 08:44] VITALS: BP 118/70; BMI 40.4
--- NOTE | 2024-09-08 08:44 | A.OFFVIS_ITS ---
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 No complaints. Last Pap/HPV was negative in 05/20, this was preceded by Pap smear in 11/18 showing WANDA 1/HPV positive, colpo/biopsy/ECC were negative Last Mammogram was BI-RADS 2 in 12/18 No previous screening colonoscopy [facility] Medical History LGSIL (low grade squamous intraepithelial dysplasia) On Accutane therapy Acne cosmetica Endometriosis Surgical History S/P laparoscopic surgery History of appendectomy History of tubal ligation Family History Father Diabetes mellitus Mother No problems noted. Sister No problems noted. Maternal Grandmother Diabetes mellitus Lung cancer Maternal Grandfather Myocardial infarction Paternal Grandmother Diabetes mellitus Stroke Paternal Grandfather Myocardial infarction Son No problems noted. Daughter No problems noted. Social History Alcohol intake: current Alcohol intake frequency: holidays/special occasions only Female Reproductive History Menstrual Age of Menarche: 11 Review of Systems Const All systems reviewed & are unremarkable except as noted in HPI and below Card Reports as per HPI Resp Reports as per HPI GI Reports as per HPI and Reports no additional complaints Reports as per HPI Physical Exam Vital Signs: Last Vital Signs BP 118/70 09/08/24 08:44 BMI result Body Mass Index 40.4 Const General: cooperative, healthy appearing and comfortable Chest Chest palpation & inspection: normal inspection of the chest and normal palpation of entire chest wall Breast/axilla inspection: normal inspection of the breasts and normal inspection of the axillae Breast/axilla palpation: normal palpation of the breasts, normal palpation of the axillae and no axillary lymphadenopathy Resp Effort & Inspection: normal respiratory effort Auscultation: clear to auscultation bilaterally Percussion: percussion normal Cardio Palpation: normal PMI Rate: regular rate Rhythm: regular rhythm Heart sounds: no murmurs and no rubs Peripheral pulses: Peripheral pulses 2+ throughout GI Inspection: Yes normal to inspection Palpation (GI): Soft to palpation, nontender, no guarding, not rigid and No hepatosplenomegaly present Percussion: Yes normal to percussion Auscultation: normal bowel sounds Rectal Exam - Female: deferred General: Yes bladder normal to palpation External Female Exam: No lesion Speculum Exam - Vagina: normal appearance of the vagina, normal palpation, normal vaginal discharge and not erythematous Speculum Exam - Cervix: normal appearance of the cervix and normal palpation Bimanual exam- vagina & uterus: normal bimanual exam, normal palpation, uterine size normal, bladder normal to palpation, consistency normal and normal palpation Bimanual Exam- Adnexa, other: normal adnexae, no masses and no tenderness Assessment & Plan Assessment & Plan (1) Well woman exam: Code(s): Z01.419 - Encounter for gynecological examination (general) (routine) without abnormal findings Category: Medical Plan: Cotesting done. Mammogram ordered. GI referral placed for screening colonoscopy Counseled the patient about the recommended dietary allowance of 1000 mg of Calcium & 600 IU of vitamin D. The patient was instructed to perform monthly self-breast exams and to schedule an annual exam in a year; All questions answered and the patient verbalized understanding. Instructed the patient to schedule annual exam in a year Orders: Orders MM tomosynthesis screening BI Today Z12.31 - Encounter for screening mammogram for malignant neoplasm of breast Referrals Gastroenterology Referral Z12.11 - Encounter for screening for malignant neopl asm of colon Coding Level of Care Code Est Pt Prev Care 40-64y(76631) Diagnoses Well woman exam Z01.419
== END 2024-09-08 09:24 | disposition home or self-care (01) ==
PROVIDERS: PCP Nurse Practitioner Family; Visit Provider Obstetrics & Gynecology
DX: Z01.419 Encounter for gynecological examination (general) (routine) without abnormal findings (principal)
CPT/HCPCS: 99396

== ENCOUNTER 2024-09-08 08:33 | Outpatient (REF) | payer BC, SELFPAY ==
[2024-09-09 09:24] LABS: HPV 16,18/45 See PAP report
== END 2024-09-08 08:34 | disposition home or self-care (01) ==
LOC: HO.LNP 08:33
PROVIDERS: PCP Nurse Practitioner Family; Visit Provider Obstetrics & Gynecology
DX: Z01.419 Encounter for gynecological examination (general) (routine) without abnormal findings (principal); Z87.42 Personal history of other diseases of the female genital tract
CPT/HCPCS: 87624; 88175

== ENCOUNTER 2025-07-03 08:26 | Outpatient (REF) | payer BC, SELFPAY | END 2025-07-03 08:27 | disposition home or self-care (01) | LOC: HO.LNP 08:26 | PROVIDERS: Visit Provider Obstetrics & Gynecology | DX: Z01.419 Encounter for gynecological examination (general) (routine) without abnormal findings (principal); Z11.51 Encounter for screening for human papillomavirus (HPV); Z12.11 Encounter for screening for malignant neoplasm of colon; Z23 Encounter for immunization | CPT/HCPCS: 87626; 88175; 90471; 90651 ==

== ENCOUNTER 2025-07-03 08:26 | Outpatient (AMB) | payer BC, SELFPAY ==
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
--- NOTE | 2025-07-03 08:38 | A.OFFVIS_ITS ---
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 No complaints. Last Pap/HPV was negative in 09/20, this was preceded by negative Co testing in 04/2023 and in LSIL/HPV positive in 2020 followed by colpo cervical biopsy whi ch was negative Last Mammogram was BI-RADS 2 in 04/19 No previous screening colonoscopy [facility] Medical History LGSIL (low grade squamous intraepithelial dysplasia) On Accutane therapy Acne cosmetica Endometriosis Surgical History S/P laparoscopic surgery History of appendectomy History of tubal ligation Family History Father Diabetes mellitus Mother No problems noted. Sister No problems noted. Maternal Grandmother Diabetes mellitus Lung cancer Maternal Grandfather Myocardial infarction Paternal Grandmother Diabetes mellitus Stroke Paternal Grandfather Myocardial infarction Son No problems noted. Daughter No problems noted. Social History Alcohol intake: current Alcohol intake frequency: holidays/special occasions only Female Reproductive History Menstrual Age of Menarche: 11 Review of Systems Const All systems reviewed & are unremarkable except as noted in HPI and below Card Reports as per HPI Resp Reports as per HPI GI Reports as per HPI and Reports no additional complaints Reports as per HPI Physical Exam Vital Signs: BMI result Body Mass Index 41.6 Const General: cooperative, healthy appearing and comfortable Chest Chest palpation & inspection: normal inspection of the chest and normal palpation of entire chest wall Breast/axilla inspection: normal inspection of the breasts and normal inspection of the axillae Breast/axilla palpation: normal palpation of the breasts, normal palpation of the axillae and no axillary lymphadenopathy Resp Effort & Inspection: normal respiratory effort Auscultation: clear to auscultation bilaterally Percussion: percussion normal Cardio Palpation: normal PMI Rate: regular rate Rhythm: regular rhythm Heart sounds: no murmurs and no rubs Peripheral pulses: Peripheral pulses 2+ throughout GI Inspection: Yes normal to inspection Palpation (GI): Soft to palpation, nontender, no guarding, not rigid and No hepatosplenomegaly present Percussion: Yes normal to percussion Auscultation: normal bowel sounds Rectal Exam - Female: deferred General: Yes bladder normal to palpation External Female Exam: No lesion Speculum Exam - Vagina: normal appearance of the vagina, normal palpation, normal vaginal discharge and not erythematous Speculum Exam - Cervix: normal appearance of the cervix and normal palpation Bimanual exam- vagina & uterus: normal bimanual exam, normal palpation, uterine size normal, bladder normal to palpation, consistency normal and normal palpation Bimanual Exam- Adnexa, other: normal adnexae, no masses and no tenderness Assessment & Plan Assessment & Plan (1) Well woman exam: Code(s): Z01.419 - Encounter for gynecological examination (general) (routine) without abnormal findings Category: Medical Plan: Cotesting done. Mammogram ordered. Counseled the patient about the recommended dietary allowance of 1000 mg of Calcium & 600 IU of vitamin D. Referral to GI for screening colonoscopy placed The patient was instructed to perform monthly self-breast exams and to schedule an annual exam in a year; All questions answered and the patient verbalized understanding. Instructed the patient to schedule annual exam in a year Orders: Orders MM tomosynthesis screening BI Today Z12.31 - Encounter for screening mammogram for malignant neoplasm of breast Referrals Gastroenterology Referral Z12.11 - Encounter for screening for malignant neoplasm of colon Coding Level of Care Code Est Pt Prev Care 40-64y(267[address]) Diagnoses Well woman exam Z01.419
[2025-07-03 08:39] VITALS: BMI 41.6
--- OUTSIDE RECORDS SUMMARY | 2025-07-03 08:57 | XMS_ITS | Encounter Summary ---
Author Organization [facility] Address [address] [place] [phone] Care Team Providers Care Dual Rate Supervisor Name Role Phone Pcp, No Primary Care Provider Unavailabl e Unknown Primary Care Provider [phone] Encounter Details Date Type Department Care Team (Late st Contact Info) Description 07/31/2020 Lab Requisition EM Lab DOC: Mateus Lerner [address] [place] [phone] Jassi Vaca PA-C [address] [place] [phone] Encounter for laboratory testing for COVID-19 virus Social History Tobacco Use Types Packs/Day Years Used Date Smoking Tobacco: Never Assessed Comments Unknown Sex and Gender Information Value Date Recorded Sex Assigned at Not on file Legal Sex Female 4:59 PM EDT Gender Identity Not on file Sexual Orientation Not on file documented as of this encounter Plan of Treatment Not on file documented as of this encounter Procedures Procedure Name Priority Date/Time Associated Diagnosis Comments (REPORT) SARS COV-2 RNA (COVID-19), QUAL Routine 07/31/2020 2:26 PM EST Encounter for laboratory testing for COVID-19 virus [ICD-10-CM] documented in this encounter Results * SARS CoV-2 RNA (COVID-19), Qual (07/31/2020 2:26 PM EST) Pathologist [facility] SARS CoV 2 RNA, Qual NOT DETECTED NOT DETECTED 08/02/2020 8:00 AM EST [facility] Comment: A Not Detected (negative) test result for this test means that SARS-CoV-2 RNA was not present in the specimen above the limit of detection. A negative result does not rule out the possibility of COVID-19 and should not be used as the sole basis for treatment or patient management decisions. If COVID-19 is still suspected, based on exposure history together with other clinical findings, re-testing should be considered in consultation with public health authorities. Laboratory test results should always be considered in the context of clinical observations and epidemiological data in making a final diagnosis and patient management decisions. REFERENCE RANGE: NOT DETECTED This patient specimen was tested using an FDA EUA pooling method. Negative results from pooled testing should not be treated as definitive. If the patient's clinical signs and symptoms are inconsistent with a negative result or results are necessary for patient management, then the patient should be considered for individual testing. Specimens with low viral loads may not be detected in sample pools due to the decreased sensitivity of pooled testing. Please review the Fact Sheets and FDA authorized labeling available for health care providers and patients using the following websites: https://www.SocialVest.[employer]/home/Covid-19/HCP/QuestLDTP/ fact-sheet https://www.SocialVest.[employer]/home/Covid-19/Patients/QuestLDTP/ fact-sheet.html This test has been authorized by the FDA under an Emergency Use Authorization (EUA) for use by authorized laboratories. Due to the current public health emergency, [facility] is receiving a high volume of samples from a wide variety of swabs and media for COVID-19 testing. In order to serve patients during this public health crisis, samples from appropriate clinical sources are being tested. Negative test results derived from specimens received in non-commercially manufactured viral collection and transport media, or in media and sample collection kits not yet authorized by FDA for COVID-19 testing should be cautiously evaluated and the patient potentially subjected to extra precautions such as additional clinical monitoring, including collection of an additional specimen. Methodology: Nucleic Acid Amplification Test (NAAT) includes RT-PCR or TMA Additional information about COVID-19 can be found at the [facility] website: www.Mobile2Win India.[employer]/Covid19. Microbiology Nasopharyngeal swab / Unknown 07/31/2020 2:26 PM EST 07/31/2020 2:26 PM EST [facility] - 08/02/2020 8:00 AM EST Performing Organization Information: Site ID: [id number] Name: [employer] Address: [address] [place] [address],[place] [address] Director: YOLANDE ODELL MD Performed at [facility] License number [id number] Jassi Vaca PA-C BODY FLUIDS AND STOOLS OR DERABLES Final Result Performing Organization Address City/State/[facility] de Phone Number [facility] documented in this encounter Visit Diagnoses Diagnosis Encounter for laboratory testing for COVID-19 virus documented in this encounter Care Teams Dual Rate Supervisor Relationship Specialty Start Date End Date Pcp, No PCP - General General Medicine 06/02/23 06/08/23 Unknown Unknow Provider Address PCP - General 06/09/23 documented as of this encounter
--- OUTSIDE RECORDS SUMMARY | 2025-07-03 08:57 | XMS_ITS | Clinical Summary ---
Author Organization [facility] Address [address] [place] [address] Care Team Providers Care Health Occupations Teacher Name Role Phone Unknown Primary Care Provider [phone] Allergies Active Allergy Reactions Criticality Noted Date Comments Sulfamethoxazole-Trimethoprim Hives Medium 2022 Bee Venom Hives Medium 06/09/2023 Medications levonorgestrel- ethinyl estradiol (SEASONALE) 0.15-0.03 MG per tablet Take 1 tablet by mouth daily. 3 Active phentermine 37.5 MG capsule TAKE 1 CAPSULE (37.5 MG) BY ORAL ROUTE ONCE DAILY BEFORE BREAKFAST 3 Active doxycycline (VIBRAMYCIN) 100 MG capsuleIndicati ons:Abscess of right axilla Take 1 capsule (100 mg total) by mouth 2 (two) times a day. 6 capsule 3 Active Active Problems No known active problems Encounters Date Type Department Care Team Description 06/28/2025 3:10 PM EDT Office Visit [facility] [address] [phone] Newton Benavides MD Comeau, Ashley, PA-C Screen for STD (sexually transmitted disease) (Primary Dx) 06/28/2025 Travel from Last 3 Months Social History Tobacco Use Types Packs/Day Years Used Date Smoking Tobacco: Never Smokeless Tobacco: Never Tobacco Cessation:Counseling Given: Not Answered Comments No Sex and Gender Information Value Date Recorded Sex Assigned at Not on file Legal Sex Female 4:59 PM EDT Gender Identity Not on file Sexual Orientation Not on file Last Filed Vital Signs Vital Sign Reading [...] Mass Index 35.15 06/28/2025 3:14 PM EDT Plan of Treatment Health Maintenance Due Date Last Done Comments Hepatitis C Virus Screening 1978 HIV Screening 1991 DTaP/Tdap/Td Vaccines (1 - Tdap) 1997 Hepatitis B Vaccines (1 of 3 - 19+ 3-dose series) 1997 Pap Smear (Ages 21-65) 1999 Mammogram 2018 Colonoscopy 2023 Influenza Vaccine 04/28/2025 COVID-19 Vaccine (3 - 2024-2 6 season) 2025 11/28/2020, 10/31/2020 Pneumococcal Vaccine: Pediatric (0-5 Years) and At-Risk Patients (6 to 49 Years) Aged Out No longer eligible b ased on patient's age to complete this topic Procedures Procedure Name Priority Date/Time Associated Diagnosis Comments [facility] ADVANCED VAGINITIS PLUS, TMA Routine 06/28/2025 3:34 PM EDT Screen for STD (sexually transmitted disease) from Last 3 Months Results * Sureab Advanced Vaginitis Plus, TMA (06/28/2025 3:34 PM EDT) [facility] Bacterial Vaginosis (BV), TMA NEGATIVE NEGATIVE [employer] Rosalba Species NOT DETECTED NOT DETECTED [employer] Rosalba Glabrata NOT DETECTED NOT DETECTED [employer] Comment: Rosalba species C. albicans, C. tropicalis, C. parapsilosis, and/or C. dubliniensis can be detected, but not differentiated, in the Rosalba spp. result. Trichomonas Vaginalis (TV), TMA NOT DETECTED NOT DETECTED [employer] Chlamydia Trachomatis RNA, TMA NOT DETECTED NOT DETECTED [employer] Neisseria Gonorrhoeae RNA, TMA NOT DETECTED NOT DETECTED [employer] Comment: For additional information, please refer to https://OrdrIt.Eximia/faq/AQM252 (This link is being provided for information/ educational purposes only.) 06/28/2025 3:34 PM EDT 06/29/2025 12:18 AM EDT us Rina Elizabeth PA-C LAB AMB MICRO ORDERABLES Luann hooker Result [facility] [address] [place] [phone] from Last 3 Months Insurance [facility] Care Teams Health Occupations Teacher Relationship Specialty Start Date End Date Unknown Unknow Provider Address PCP - General 06/09/23
--- OUTSIDE RECORDS SUMMARY | 2025-07-03 08:57 | XMS_ITS | Encounter Summary ---
Author Organization [facility] Address [address] [place] [address] Care Team Providers Care Paint Technician Name Role Phone Pcp, No Primary Care Provider Unavailabl e Unknown Primary Care Provider [phone] Encounter Details Date Type Department Care Team (Late st Contact Info) Description 06/08/2020 Lab Requisition EM Lab DOC: Mateus Lerner [address] [place] [phone] Jassi Vaca PA-C [address] [place] [address] Encounter for laboratory testing for COVID-19 virus [...] (REPORT) SARS COV-2 RNA (COVID-19), QUAL Routine 06/08/2020 9:53 AM EDT Encounter for laboratory testing for COVID-19 virus [ICD-10-CM] documented in this encounter Results * SARS CoV-2 RNA (COVID-19), Qual (06/08/2020 9:53 AM EDT) Pathologist [facility] SARS CoV 2 RNA, Qual NOT DETECTED NOT DETECTED 06/10/2020 2:00 AM EDT [facility] Comment: A Not Detected (negative) test result [...] providers and patients using the following websites: https://www.LIANAI.com/home/Covid-19/HCP/QuestLDTP/ fact-sheet https://www.LIANAI.Purkinje/home/Covid-19/Patients/QuestLDTP/ fact-sheet.html This test has been authorized by the FDA under an Emergency Use Authorization (EUA) for use by authorized laboratories. Due to the current public health emergency, [employer] is receiving a high volume of samples [...] Methodology: Nucleic Acid Amplification Test (NAAT) includes PCR or TMA Additional information about COVID-19 can be found at the [employer] website: www.MeeDoc.Purkinje/Covid19. Microbiology Nasopharyngeal swab / Unknown 06/08/2020 9:53 AM EDT 06/08/2020 9:53 AM EDT [facility] 06/10/2020 2:00 AM EDT Performing Organization Information: Site ID: [id number] Name: [employer] Address: [address] [place] [address],[place] [address] Director: YOLANDE ODELL MD Performed at [facility] License number [id number] Jassi Vaca PA-C BODY FLUIDS AND STOOLS OR DERABLES Final Result Performing Organization Address City/State/[facility] Co de Phone Number [facility] documented in this encounter Visit Diagnoses Diagnosis Encounter for laboratory testing for COVID-19 virus documented in this encounter Care Teams Paint Technician Relationship Specialty Start Date End Date Pcp, No PCP - General General Medicine 06/02/23 06/08/23 Unknown Unknow Provider Address PCP - General 06/09/23 documented as of this encounter
--- OUTSIDE RECORDS SUMMARY | 2025-07-03 08:57 | XMS_ITS | Encounter Summary ---
Author Organization [facility] Address [address] [place] [address] Care Team Providers Care Shipping Supervisor Name Role Phone Pcp, No Primary Care Provider Unavailabl e Unknown Primary Care Provider [phone] Encounter Details Date Type Department Care Team (Late st Contact Info) Description 09/14/2020 Lab Requisition EM Lab DOC: Mateus Lerner [address] [place] [phone] Jassi Vaca PA-C [address] [place] [address] Encounter for laboratory testing for COVID-19 virus [...] (REPORT) SARS COV-2 RNA (COVID-19), QUAL Routine 09/14/2020 8:07 AM EST Encounter for laboratory testing for COVID-19 virus [ICD-10-CM] documented in this encounter Results * SARS CoV-2 RNA (COVID-19), Qual (09/14/2020 8:07 AM EST) Pathologist [facility] SARS CoV 2 RNA, Qual NOT DETECTED NOT DETECTED 09/16/2020 4:00 PM EST [facility] Comment: A Not Detected (negative) test result for this test means that SARS- CoV-2 RNA was not present in the specimen [...] a final diagnosis and patient management decisions. Please review the Fact Sheets and FDA authorized labeling available for health care providers and patients using the following websites: https://www.LugIron Software.[employer]/home/Covid-19/HCP/QuestLDT/ fact-sheet.html https://www.LugIron Software.[employer]/home/Covid-19/Patients/QuestLDT/ fact-sheet.html This test has been authorized by the FDA under an Emergency Use Authorization (EUA) for use by authorized laboratories. Due to the current public health emergency, [facility] is receiving a high volume of samples [...] about COVID-19 can be found at the [facility] website: www.eSoft.[employer]/Covid19. Microbiology Nasopharyngeal swab / Unknown 09/14/2020 8:07 AM EST 09/14/2020 8:07 AM EST Narrative [facility] - 09/16/2020 4:00 PM EST Performing Organization Information: Site ID: [id number] Name: [employer] Address: [address] [place] [address],[place] [address] Director: YOLANDE ODELL MD [facility]formed at [facility] License number [id number] Jassi Vaca PA-C BODY FLUIDS AND STOOLS OR DERABLES Final Result [facility] documented in this encounter Visit Diagnoses Diagnosis Encounter for laboratory testing for COVID-19 virus documented in this encounter Care Teams Shipping Supervisor Relationship Specialty Start Date End Date Pcp, No PCP - General General Medicine 06/02/23 06/08/23 Unknown Unknow Provider Address PCP - General 06/09/23 documented as of this encounter
--- OUTSIDE RECORDS SUMMARY | 2025-07-03 08:57 | XMS_ITS ---
Author Name [facility] Organization Unknown Results Test Name/Text Value Interpretation Date Range Source Rosalba rRNA Vag Ql Probe NOT DETECTED Normal 06/29/2025 - [facility] bacteria rRNA Vag Ql CARYL+probe NEGATIVE Normal 2024 - [facility] gonorrhoea rRNA Spec Ql CARYL+probe NOT DETECTED Normal 06/29/2025 - [facility] T vaginalis rRNA Spec Ql CARYL+probe NOT DETECTED Normal 06/29/2025 - [facility] C glabrata RNA Vag Ql CARYL+probe NOT DETECTED Normal 06/29 - [facility] C trach rRNA Spec Ql CARYL+probe NOT DETECTED Normal 2024 - [facility] History of Medication Use Medication Directions Dispensed Refills Start Date End Date Stat us doxycycline (VIBRAMYCIN) 100 MG capsule Take 1 capsule (100 mg total) by mouth 2 (two) times a day. 07/02/2023 07/19/2023 active phentermine 37.5 MG capsule TAKE 1 CAPSULE (37.5 MG) BY ORAL ROUTE ONCE DAILY BEFORE BREAKFAST 06/27/2023 active moxifloxacin (VIGAMOX) 0.5 % ophthalmic solution Administer 1 drop into the left eye 3 (three) times a day. 06/09/2023 07/02/2023 aborted phentermine 30 MG capsule TAKE 1 CAPSULE BY MOUTH ONCE DAILY BEFORE BREAKFAST 03/24/2023 07/02/2023 active levonorgestrel-ethin yl estradiol (SEASONALE) 0.15-0.03 MG per tablet Take 1 tablet by mouth daily. 03/12/2023 active Allergies Allergen Reaction Severity Comment Documented Date Source Statu s BEE VENOM HIVES 06/09/2023 [facility] active SULFAMETHOXAZOLE-TRIMETHOPRIM HIVES HH CCT Problems Problem Status Onset Date Problem Type Date of Resoluti on Source Screen for STD (sexually transmitted disease) active EncounterDiagnosisAct [facility]CT Encounters Encounter Type Encounter Reason Primary Diagnosis Location Date Ambulatory Encounter for screening for infections with a predominantly sexual mode of transmission Encounter for screening for infections with a predominantly sexual mode of transmission [facility] 06/28/2025 Ambulatory Cutaneous abscess of right axilla Cutaneous abscess of right axilla [facility] 07/02/2023 Ambulatory Enlarged lymph nodes , unspecified Enlarged lymph nodes, unspecified [facility] 07/02/2023 Ambulatory Unspecified acute conjunctivitis, left eye Unspecified acute conjunctivitis, left eye [facility] 06/09/2023 Care Team Organization Name Specialty Phone Email Start Date End [facility] ([facility] 08/12/2024 [facility] 07/02/2023 [facility] 06/09/2023 06/09/2023 [facility] NO PCP Primary Care 06/09/2023 06/09/2023
--- OUTSIDE RECORDS SUMMARY | 2025-07-03 08:57 | XMS_ITS | Encounter Summary ---
Author Organization [facility] Address [address] [place] [address] Care Team Providers Care Paving Stone Installer Name Role Phone Pcp, No Primary Care Provider Unavailabl e Unknown Primary Care Provider [phone] Encounter Details Date Type Department Care Team (Late st Contact Info) Description 07/03/2020 Lab Requisition EM Lab DOC: Mateus Lerner [address] [place] [phone] Jassi Vaca PA-C [address] [place] [phone] Encounter for laboratory testing for COVID-19 virus [...] (REPORT) SARS COV-2 RNA (COVID-19), QUAL Routine 07/03/2020 3:09 PM EDT Encounter for laboratory testing for COVID-19 virus [ICD-10-CM] documented in this encounter Results * SARS CoV-2 RNA (COVID-19), Qual (07/03/2020 3:09 PM EDT) Pathologist [facility] SARS CoV 2 RNA, Qual NOT DETECTED NOT DETECTED 07/04/2020 11:00 PM EDT [facility] Comment: A Not Detected (negative) test result [...] providers and patients using the following websites: https://www.MentiNova.com/home/Covid-19/HCP/QuestLDTP/ fact-sheet https://www.MentiNova.OpenCounter/home/Covid-19/Patients/QuestLDTP/ fact-sheet.html This test has been authorized by the FDA under an Emergency Use Authorization (EUA) for use by authorized laboratories. Due to the current public health emergency, [facility] is receiving a high volume of samples [...] about COVID-19 can be found at the [employer] website: www.Attend.com.OpenCounter/Covid19. Microbiology Nasopharyngeal swab / Unknown 07/03/2020 3:09 PM EDT 07/03/2020 3:09 PM EDT [facility] 07/04/2020 11:00 PM EDT Performing Organization Information: Site ID: [id number] Name: [employer] Address: [address] [place] [address] [address]LO[address],[place] [address] Director: YOLANDE ODELL MD [facility] at [facility] License number [id number] Jassi Vaca PA-C BODY FLUIDS AND STOOLS OR DERABLES Final Result Performing Organization Address City/State/[facility] de Phone Number [facility] documented in this encounter Visit Diagnoses Diagnosis Encounter for laboratory testing for COVID-19 virus documented in this encounter Care Teams Paving Stone Installer Relationship Specialty Start Date End Date Pcp, No PCP - General General Medicine 06/02/23 06/08/23 Unknown Unknow Provider Address PCP - General 06/09/23 documented as of this encounter
--- OUTSIDE RECORDS SUMMARY | 2025-07-03 08:57 | XMS_ITS | Encounter Summary ---
Author Organization [facility] Address [address] [place] [address] Care Team Providers Care Classifications Officer Cc/Cm Name Role Phone Pcp, No Primary Care Provider Unavailabl e Unknown Primary Care Provider [phone] Encounter Details Date Type Department Care Team (Late st Contact Info) Description 04/17/2020 Lab Requisition EM Lab DOC: Mateus Lerner [address] [place] [phone] Jassi Vaca PA-C [address] [place] [phone] Encounter for laboratory testing for COVID-19 virus [...] (REPORT) SARS COV-2 RNA (COVID-19), QUAL Routine 04/17/2020 1:09 PM EDT Encounter for laboratory testing for COVID-19 virus [ICD-10-CM] documented in this encounter Results * SARS CoV-2 RNA (COVID-19), Qual (04/17/2020 1:09 PM EDT) Pathologist [facility] SARS CoV 2 RNA, Qual NOT DETECTED NOT DETECTED 04/18/2020 4:00 PM EDT [facility] Comment: [...] providers and patients using the following websites: https://www.Sayduck.Poptank Studios/home/Covid-19/HCP/NAAT/fact-sheet2 https://www.Sayduck.Poptank Studios/home/Covid-19/Patients/NAAT/ fact-sheet2 This test has been authorized by the FDA under an Emergency Use Authorization (EUA) for use by authorized laboratories. Due to the current public health emergency, [facility] is receiving a high volume of samples [...] about COVID-19 can be found at the [employer] website: www.ReverbNation.Poptank Studios/Covid19. Microbiology Nasopharyngeal swab / Unknown 04/17/2020 1:09 PM EDT 04/17/2020 1:09 PM EDT Narrative [facility] - 04/18/2020 4:00 PM EDT Performing Organization Information: Site ID: [id number] Name: [employer] Address: [address] [place] [address],[place] [address] Director: YOLANDE ODELL MD [facility]formed at [facility] License number [id number] Jassi Vaca PA-C BODY FLUIDS AND STOOLS OR DERABLES Final Result [facility] documented in this encounter Visit Diagnoses Diagnosis Encounter for laboratory testing for COVID-19 virus documented in this encounter Care Teams Classifications Officer Cc/Cm Relationship Specialty Start Date End Date Pcp, No PCP - General General Medicine 06/02/23 06/08/23 Unknown Unknow Provider Address PCP - General 06/09/23 documented as of this encounter
--- OUTSIDE RECORDS SUMMARY | 2025-07-03 08:57 | XMS_ITS | Encounter Summary ---
Author Organization [facility] Address [address] [place] [address] Care Team Providers Care Loss Prevention And Safety Manager Name Role Phone Pcp, No Primary Care Provider Unavailabl e Unknown Primary Care Provider [phone] Encounter Details Date Type Department Care Team (Late st Contact Info) Description 09/25/2020 Lab Requisition EM Lab DOC: Mateus Lerner [address] [place] [phone] Jassi Vaca PA-C [address] [place] [address] Encounter for laboratory testing for COVID-19 virus [...] (REPORT) SARS COV-2 RNA (COVID-19), QUAL Routine 09/25/2020 7:58 AM EST Encounter for laboratory testing for COVID-19 virus [ICD-10-CM] documented in this encounter Results * SARS CoV-2 RNA (COVID-19), Qual (09/25/2020 7:58 AM EST) Pathologist [facility] SARS CoV 2 RNA, Qual NOT DETECTED NOT DETECTED 09/27/2020 6:00 AM EST [facility] Comment: A Not Detected (negative) test result [...] providers and patients using the following websites: https://www.SpineGuard.Tensegrity Technologies/home/Covid-19/HCP/QuestLDT/ fact-sheet.html https://www.SpineGuard.Tensegrity Technologies/home/Covid-19/Patients/QuestLDT/ fact-sheet.html This test has been authorized by the FDA under an Emergency Use Authorization (EUA) for use by authorized laboratories. Due to the current public health emergency, [facility] is receiving a high volume of samples [...] about COVID-19 can be found at the [employer] website: www.Gati Infrastructure.Tensegrity Technologies/Covid19. Microbiology Nasopharyngeal swab / Unknown 09/25/2020 7:58 AM EST 09/25/2020 7:58 AM EST Narrative [facility] - 09/27/2020 6:00 AM EST Performing Organization Information: Site ID: [id number] Name: [employer] Address: [address] [place] [address],[place] [address] Director: YOLANDE ODELL MD [facility] at [facility] License number [id number] Jassi Vaca PA-C BODY FLUIDS AND STOOLS OR DERABLES Final Result [facility] documented in this encounter Visit Diagnoses Diagnosis Encounter for laboratory testing for COVID-19 virus documented in this encounter Care Teams Loss Prevention And Safety Manager Relationship Specialty Start Date End Date Pcp, No PCP - General General Medicine 06/02/23 06/08/23 Unknown Unknow Provider Address PCP - General 06/09/23 documented as of this encounter
--- OUTSIDE RECORDS SUMMARY | 2025-07-03 08:57 | XMS_ITS | Encounter Summary ---
Author Organization [facility] Address [address] [place] [address] Care Team Providers Care Supervisor Phosphorus Processing Name Role Phone Pcp, No Primary Care Provider Unavailabl e Unknown Primary Care Provider [phone] Encounter Details Date Type Department Care Team (Late st Contact Info) Description 09/06/2020 Lab Requisition [facility] [address] [place] [phone] Jassi Vaca PA-C [address] [place] [id number] Encounter for laboratory testing for COVID-19 virus [...] (REPORT) SARS COV-2 RNA (COVID-19), QUAL Routine 09/06/2020 2:51 PM EST Encounter for laboratory testing for COVID-19 virus [ICD-10-CM] documented in this encounter Results * SARS CoV-2 RNA (COVID-19), Qual (09/06/2020 2:51 PM EST) [facility] SARS CoV 2 RNA, Qual NOT DETECTED NOT DETECTED 09/10/2020 1:00 PM EST [facility] Comment: A [...] providers and patients using the following websites: https://www.Geofusion.[place]/home/Covid-19/HCP/QuestIVD/fact- sheet.html https://www.Geofusion.[place]/home/Covid-19/Patients/ QuestIVD/fact-sheet.html This test has been authorized by the FDA under an Emergency Use Authorization (EUA) for use by authorized laboratories. Due to the current public health emergency, [facility] is receiving a high volume of samples [...] about COVID-19 can be found at the [facility] website: www.DartPoints.[place]/Covid19. Microbiology Nasopharyngeal swab / Unknown 09/06/2020 2:51 PM EST 09/06/2020 2:51 PM EST Narrative [facility] - 09/10/2020 1:00 PM EST Performing Organization Information: Site ID: [id number] Name: [facility] Address: [address] [place] [address],[place] [address] Director: YOLANDE ODELL MD [facility] License number [id number] Jassi Vaca PA-C B[employer] FLUIDS [employer] STOOLS OR DERABLES Final Result Performing Organization Address City/State/[facility] Co de Phone Number [facility] documented in this encounter Visit Diagnoses Diagnosis Encounter for laboratory testing for COVID-19 virus documented in this encounter Care Teams Supervisor Phosphorus Processing Relationship Specialty Start Date End Date Pcp, No PCP - General General Medicine 06/02/23 06/08/23 Unknown Unknow Provider Address PCP - General 06/09/23 documented as of this encounter
--- OUTSIDE RECORDS SUMMARY | 2025-07-03 08:57 | XMS_ITS | Encounter Summary ---
Author Organization [facility] Address [address] [place] [id number] Care Team Providers Care Printing Machine Operator Tape Rules Name Role Phone Unknown Primary Care Provider [phone] Encounter Details Date Type Department Care Team (Latest Contact Info) Description 06/28/2025 Travel Social History Tobacco Use Types Packs/Day Years Used Date Smoking Tobacco: Never Smokeless Tobacco: Never Comments No Sex and Gender Information Value Date Recorded Sex Assigned at Not on file Legal Sex Female 4:59 PM EDT Gender Identity Not on file Sexual Orientation Not on file documented as of this encounter Plan of Treatment Not on file documented as of this encounter Visit Diagnoses Not on filedocumented in this encounter Care Teams Printing Machine Operator Tape Rules Relationship Specialty Start Date End Date Unknown Unknow Provider Address PCP - General 06/09/23 documented as of this encounter
== END 2025-07-03 09:01 | disposition home or self-care (01) ==
LOC: HO.HWS 08:27
PROVIDERS: Visit Provider Obstetrics & Gynecology
DX: Z01.419 Encounter for gynecological examination (general) (routine) without abnormal findings (principal); Z23 Encounter for immunization
CPT/HCPCS: 99396; 99459

== ENCOUNTER 2025-09-13 09:14 | Outpatient (AMB) | payer BC, SELFPAY ==
--- OUTSIDE RECORDS SUMMARY | 2025-09-13 10:20 | XMS_ITS | Clinical Summary ---
Author Organization [facility] Address [address] [place] [address] Care Team Providers Care Business Development Officer Name Role Phone Unknown Primary Care Provider [phone] Allergies Active Allergy Reactions Criticality Noted [...] Description 06/28/2025 3:10 PM EDT Office Visit [facility] [address] [phone] Newton Benavieds MD Comeau, Ashley, PA-C Screen for STD (sexually transmitted disease) (Primary Dx) from Last 3 Months Social History Tobacco [...] Procedure Name Priority Date/Time Associated Diagnosis Comments [facility] ADVANCED VAGINITIS PLUS, TMA Routine 06/28/2025 3:34 PM EDT Screen for STD (sexually transmitted disease) from Last 3 Months Results * [facility] Advanced Vaginitis Plus, TMA (06/28/2025 3:34 PM EDT) [facility] Adv Bacterial Vaginosis (BV), TMA NEGATIVE NEGATIVE Adisn Rosalba Species NOT DETECTED NOT DETECTED Adisn Rosalba Glabrata NOT DETECTED NOT DETECTED Adisn Comment: Rosalba species C. albicans, C. tropicalis, C. parapsilosis, and/or C. dubliniensis can be detected, but not differentiated, in the Rosalba spp. result. Trichomonas Vaginalis (TV), TMA NOT DETECTED NOT DETECTED Adisn Chlamydia Trachomatis RNA, TMA NOT DETECTED NOT DETECTED [email or web address] Neisseria Gonorrhoeae RNA, TMA NOT DETECTED NOT DETECTED Adisn Comment: For additional information, please refer to https://education.LiveOps/faq/BND858 (This link is being provided for information/ educational purposes only.) 06/28/2025 3:34 PM EDT 06/29/2025 12:18 AM EDT us Rina Elizabeth PA-C LAB AMB MICRO ORDERABLES Luann l Result [employer] [address] [place] [address] from Last 3 Months [facility] Business Development Officer Relationship Specialty Start Date End Date Unknown Unknow Provider Address PCP - General 06/09/23
--- NOTE | 2025-09-13 14:16 | A.OFFVIS_ITS ---
Intake Visit Reasons: 2nd gardasil Allergies latex Allergy (Unknown, Verified 07/03/25 08:40) unknown Sulfa (Sulfonamide Antibiotics) Allergy (Unknown, Verified 07/03/25 08:40) unknown sulfamethoxazole (From Bactrim) Allergy (Unknown, Verified 07/03/25 08:40) unknown trimethoprim (From Bactrim) Allergy (Unknown, Verified 07/03/25 08:40) unknown bee stings Allergy (Unknown, Uncoded 05/18/23 10:35) unknown PFSH Medical History LGSIL (low grade squamous intraepithelial dysplasia) On Accutane therapy Acne cosmetica Endometriosis Surgical History S/P laparoscopic surgery History of appendectomy History of tubal ligation Family History Father Diabetes mellitus Mother No problems noted. Sister No problems noted. Maternal Grandmother Diabetes mellitus Lung cancer Maternal Grandfather Myocardial infarction Paternal Grandmother Diabetes mellitus Stroke Paternal Grandfather Myocardial infarction Son No problems noted. Daughter No problems noted. Social History Alcohol intake: current Alcohol intake frequency: holidays/special occasions only Female Reproductive History Menstrual Age of Menarche: 11 Immunizations Gardasil 9 (PF) 0.5 mL intramuscular syringe Performing Provider: Bereket Heaton MD Performing Location: [facility] [place] Administered by: Radha Ny LPN on 09/13/25 10:15 Dose Route Admin Location Dispensed Lot Number Expiration Date [facility] Department Helper 0.5 mL IM Right Deltoid 0.5 mL [id number] 11/24/25 0494-6048-56 [employer] Total Dispensed Waste 0.5 mL 0 % VIS Given Date VIS Provided VIS Publication Date 09/13/25 Single Vaccine 21 Eligibility Eligibility Date Funding Source Not [facility] Eligible 09/13/25 Private Administration Comments: Pt tolerated inj well foloow up in 3 mos for 3rd inj. Assessment & Plan Assessment & Plan Orders: Orders Human Papillomavirus Immunization Today Z23 - Encounter for immunization Coding
== END 2025-09-13 14:19 | disposition home or self-care (01) ==
LOC: HO.HWS 09:15
PROVIDERS: Visit Provider Obstetrics & Gynecology
DX: Z23 Encounter for immunization (principal)

== ENCOUNTER → 2025-09-13 09:14 | Outpatient (BNVA) | payer BC, SELFPAY | PROVIDERS: Visit Provider Obstetrics & Gynecology | DX: Z23 Encounter for immunization (principal) | CPT/HCPCS: 90471; 90651 ==